=== PATIENT | female | born 1990 | race Caucasian/White ===

== ENCOUNTER 2023-02-07 05:39 | Day surgery (SDC) | payer BC ==
[2023-02-01 09:34] VITALS: BMI 24.3
[2023-02-07] MEDS ORDERED: EPINEPHrine 1 MG/ML VIAL ONE (06:15)
[2023-02-07] MEDS ORDERED: Bupivacaine PF 0.5% 30 ML VIAL ONE (06:15)
[2023-02-07] MEDS ORDERED: CEFAZOLIN 2 GM VIAL ONE (06:45)
[2023-02-07] MEDS ORDERED: fentaNYL 50 mcg/mL 1 mL Vial ONE (06:49)
[2023-02-07] MEDS ORDERED: PROPOFOL 60 ML ONE (06:49)
[2023-02-07] MEDS ORDERED: PROPOFOL 20 ML ONE (07:12)
[2023-02-07] MEDS ORDERED: Acetaminophen 325 MG TAB PO PRN (07:30)
[2023-02-07] MEDS ORDERED: HYDROcodone/Acetaminophen 5/325 mg Tablet PO PRN (07:30)
== END 2023-02-07 08:20 | disposition home or self-care (01) ==
LOC: CSHSDC 05:39
PROVIDERS: ATTEND Surgery
PROC: 0JH63WZ Insertion of Totally Implantable Vascular Access Device into Chest Subcutaneous Tissue and Fascia, Percutaneous Approach (ICD-10-PCS; principal; 2023-02-07)
DX: C81.18 Nodular sclerosis Hodgkin lymphoma, lymph nodes of multiple sites (principal)
CPT/HCPCS: 71045; C1788; J0171; J1642; J2704; J3010; S0020

== ENCOUNTER 2023-09-28 20:14 | Emergency (ER) | payer BC ==
[2023-09-28] MEDS ORDERED: Dexamethasone 10 MG/ML VIAL ONE (21:50)
== END 2023-09-28 22:08 | disposition home or self-care (01) ==
LOC: CSHERS 20:14
DX: T65.91XA Toxic effect of unspecified substance, accidental (unintentional), initial encounter (principal); T78.40XA Allergy, unspecified, initial encounter
CPT/HCPCS: 99282; J1100